=== PATIENT | male | born 1945 | race Caucasian/White ===

== ENCOUNTER 2017-01-23 17:54 | Inpatient (IN) | payer BC, OTHER ==
[~2017-01-23] VITALS: Ht 182.9 cm; Wt 137.4 kg
--- NOTE | ~2017-01-23 | HC ---
[facility] [place] [address] CONSULTATION Name: CASEY WAYNE Chacorta Room #: 421-P ADM IN M.R.#: [id number] Admission: 01/23/17 Attend Phys: Dorita Alex Discharge: Date of : 49 Report #: [id number] THIS REPORT FOR: //name// CC: Martin Delaney Beto REASON FOR CONSULTATION: Evaluate pneumonia community-acquired. HISTORY OF PRESENT ILLNESS: The patient is a 71-year-old with underlying history of hypertension, obstructive sleep apnea, who presents with a 3-day history of low-grade fever, cough, sputum production, shortness of breath. Seen in the outpatient clinic and admitted for further evaluation. Now on 4 liters of oxygen per nasal cannula. He was given ceftriaxone. His fever has abated. He has coughed up yellow to bloody type sputum. No pleuritic chest pain. Dyspnea on exertion. Dry heaves without abdominal pain or diarrhea. No gross emesis. No dysuria or frequency. No rash. No arthritis symptoms more than his normal degenerative arthritis. Traveled to [place] about a month ago. Has been exposed to his and grandson both of which have been without respiratory issues. He is a remote smoker. IMMUNIZATIONS: Up to date for influenza and pneumonia. He notes previous pneumonia several years ago. He does have chronic sinus disease. ALLERGIES: None. MEDICATIONS: As noted on his MAR, including ceftriaxone. PAST MEDICAL HISTORY: Hypertension, hyperlipidemia, bilateral carpal tunnel syndrome, gastroesophageal reflux, obesity, diabetes, degenerative arthritis, spinal stenosis, chronic sinusitis, gouty arthritis, obstructive sleep apnea, appendectomy, bilateral total knee arthroplasties, rheumatic fever, elbow fracture repair, left rotator cuff repair, right trigger finger release. FAMILY HISTORY: Noncontributory. SOCIAL HISTORY: As noted above with no additions. REVIEW OF SYSTEMS: As noted above. PHYSICAL EXAMINATION: VITAL SIGNS: Afebrile, hemodynamically stable. GENERAL: He was alert and cooperative, on 4 liters of oxygen per nasal cannula. He was obese. SKIN: Unremarkable. LYMPH: Unremarkable. HEENT: Unremarkable. [address] [address] CONSULTATION Name: CASEY WAYNE Room #: 421-P [facility] IN M.R.#: [id number] Admission: 01/23/17 Attend Phys: Dorita Alex Discharge: Date of : 49 Report #: [id number] NECK: Supple, no adenopathy. LUNGS: Few crackles heard in the right mid posterior chest. No consolidation. HEART: Regular, without murmur. ABDOMEN: Soft, nontender, no hepatosplenomegaly or mass. EXTREMITIES: Unremarkable. LABORATORY STUDIES: Chest x-ray, right upper lobe and right lower lobe infiltrate. ABG showed a pO2 on room air of 72, pCO2 of 31, pH 7.45. BNP 1283, hemoglobin 10.3, white count , 60% segs, 5% bands, platelet count 130,000. Sodium 141, potassium 3.3, bicarbonate 21, creatinine 1.6. IMPRESSION: A 71-year-old with underlying obstructive sleep apnea, diabetes, obesity with community-acquired pneumonia. He does have oxygen requirements now up to 4 liters. Recommend further evaluation including sputum culture, urine antigens, continue broad antibiotic coverage with followup chest x-ray. PLAN: We will treat sinuses with decongestion, CT scan, screening of his sinuses, check immunoglobulins and HIV. <ELECTRONICALLY SIGNED> By: Tyrese Wagoner MD 01/25/17 0955 1049 1300 Tyrese Wagoner MD /nt
--- NOTE | ~2017-01-23 | H ---
[facility] [place] [address] HISTORY AND PHYSICAL Name: CASEY WAYNE Room #: 421-P ADM IN M.R.#: [id number] Admission: 01/23/17 Attend Phys: Dorita Alex Discharge: Date of : 49 Report #: [id number] THIS REPORT FOR: //name// CC: Martin Delaney Beto DATE OF SERVICE: 01/23/2017 CHIEF COMPLAINT: Shortness of breath and cough. HISTORY OF PRESENT ILLNESS: The patient is a 71-year-old gentleman who was admitted from the office with a several day respiratory illness history: He is complaining of temperature to 101 two days ago, but has developed a cough, congestion and wheezing. He has had some brown type sputum and symptoms of shortness of breath. He had some diffuse bodyaches and headache as well. Overnight, he has received respiratory treatments and a dose of antibiotics and he is feeling somewhat better today; however, he continues to bring up some brown colored sputum. PAST MEDICAL HISTORY: Obstructive sleep apnea on CPAP, hypertension, gout. PAST SURGICAL HISTORY: Noncontributory. FAMILY HISTORY: Noncontributory. SOCIAL HISTORY: He lives at home. No chronic alcohol or tobacco use. ALLERGIES: None. MEDICATIONS: Lipitor 40 mg, metoprolol 50 mg b.i.d., amlodipine 10 mg, lisinopril 20 mg, aspirin 81 mg, Lasix 40 mg, probenecid, colchicine b.i.d. REVIEW OF SYSTEMS: Denies headache, chest pain, nausea, vomiting, diarrhea, constipation, dysuria, syncope, fall. PHYSICAL EXAMINATION: VITAL SIGNS: Temperature 36.8, pulse 64, respirations 18, blood pressure 167/74, O2 sat 95% on 2 liters nasal cannula. GENERAL: He is awake and alert, eating breakfast. HEAD AND NECK: Unremarkable. LUNGS: Have diffuse expiratory rhonchi and wheezes bilateral. HEART: Regular, no murmur. ABDOMEN: Obese, soft, normoactive bowel sounds. EXTREMITIES: No cyanosis, clubbing, maybe trace ankle edema. NEUROLOGIC: Cranial nerves intact. Motor strength 5/5 throughout. Alert and oriented. [facility] [address] [place] [address] HISTORY AND PHYSICAL Name: CASEY WAYNE Room #: 421-P [facility] IN [facility].#: [id number] Admission: 01/23/17 Attend Phys: Dorita Alex Discharge: Date of : 49 Report #: [id number] Chest x-ray suggests a right-sided infiltrate. LABORATORY DATA: Initial white blood count was 4.7, creatinine is 1.6. ASSESSMENT: 1. Community-acquired pneumonia. 2. Obstructive sleep apnea. 3. Hypertension. PLAN: Antibiotics to continue, I asked for sputum culture and influenza culture, I have asked ID and Pulmonary service to follow him as well. Home medications to continue. He has no known prior history of congestive heart failure, but x-ray really does not suggest pulmonary edema, and given a fever and sputum production this looks more infectious in nature. <ELECTRONICALLY SIGNED> By: Sebastián Ron MD 01/25/17 0835 0832 1051 Sebastián Ron MD /nt
--- NOTE | ~2017-01-23 | HC ---
[facility] [place] [address] CONSULTATION Name: CASEY WAYNE Room #: 421-P ADM IN M.R.#: [id number] Admission: 01/23/17 Attend Phys: Dorita Alex Discharge: Date of : 49 Report #: [id number] THIS REPORT FOR: //name// CC: Martin Herrmann MD PRIMARY CARE PHYSICIAN: Rhett Herrmann MD REFERRAL PHYSICIAN: Dr. Ron. REASON FOR REFERRAL: Pneumonia, MEIR. HISTORY OF PRESENT ILLNESS: The patient is a 71-year-old white male who was admitted with progressive febrile illness and dyspnea. He was admitted for presumed pneumonia. A pulmonary consultation was requested. The patient was in his usual state of health until around Saturday when he started to develop congestion, dyspnea and bronchospasm. The following day, he developed fever of 101 degrees Fahrenheit. Symptom progressed where he presented to the office. The patient was directly admitted. In addition to his above complaints, he also complained diffuse myalgias along with headaches. Otherwise, denies any productive cough or chest pain, hemoptysis. Denies any recent nausea, vomiting, diarrhea. The patient denies anyone else ill at home. He has sleep apnea for a number of years. He has been compliant with the use of CPAP. Sleep apnea is primarily managed by Dr. Herrmann. PAST MEDICAL HISTORY: As mentioned above, MEIR, hypertension, gout. PAST SURGICAL HISTORY: Unremarkable. ALLERGIES: None. HOME MEDICATIONS: Include Lipitor, metoprolol, amlodipine, lisinopril, Lasix, colchicine. FAMILY HISTORY: Mother with diabetes along with heart disease. Father, he believes had congestive heart failure. SOCIAL HISTORY: , has children. Denies any tobacco or alcohol use. 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 PAST SURGICAL HISTORY: Multiple orthopedic surgeries involving both knee [facility] [address] [place] [address] CONSULTATION Name: CASEY WAYNE Room #: 421-P [facility] IN [facility].#: [id number] Admission: 01/23/17 Attend Phys: Dorita Alex Discharge: Date of : 49 Report #: [id number] surgery, left shoulder surgery, multiple hand surgeries. REVIEW OF SYSTEMS: As mentioned above, otherwise 10-point system review negative. PHYSICAL EXAMINATION: GENERAL: He is awake, alert, in mild respiratory distress. VITAL SIGNS: Temperature maximum is 99.4 degrees Fahrenheit, pulse is 64, respiratory rate is 20, blood pressure 167/74 mmHg, saturation 95%. HEENT: Normocephalic, atraumatic. NECK: Supple, without any lymphadenopathy or thyromegaly. CHEST: Breath sounds are fair, moderate expiratory wheezes, coarse breath sounds are heard bilaterally. CARDIOVASCULAR: Normal S1, S2. There are no murmurs or gallop. There is no JVD. There is no carotid bruit. Pulses are 2+/4+ bilaterally. ABDOMEN: Soft, nontender, no organomegaly or masses felt. GENITOURINARY: Deferred. RECTAL: Deferred. EXTREMITIES: There is no cyanosis, clubbing. Trace bilateral pretibial edema. LABORATORY DATA: Portable chest x-ray is reviewed showing mild right upper lobe and right lower lobe infiltrates. NT-Pro brain natriuretic peptide is 1283. Electrolytes are normal except for potassium 3.3, creatinine is 1.6, which appears to be chronic with a baseline creatinine of 1.6 to 1.5. Hemoglobin 10.3, WBC is 4700. ABG revealed pH 7.45, pCO2 31, pO2 75. IMPRESSION: 1. Progressive dyspnea in this 71-year-old white male with recent febrile illness, infiltrates and chest x-ray along with bronchospasm. Clinical presentation suggests possible viral syndrome with pneumonia. Community-acquired pneumonia cannot be ruled out. Other types of pneumonia should also be considered including possible gram-negative, etc. 2. Acute hypoxic respiratory failure requiring 4 liters of O2, now requiring 2-4 liters of O2. 3. Obstructive sleep apnea appears to be compliant with the use of CPAP. 4. Exogenous obesity. 5. Chronic kidney disease, baseline creatinine appears to be 1.5 to 1.6. 6. Hypokalemia. RECOMMENDATION: Agree with current broad-spectrum antibiotics to cover for community-acquired pneumonia. I would also obtain influenza screen if not already. Bronchospasm is likely related to underlying airway inflammation related to infectious process. The patient does not have a history of chronic obstructive lung disease or asthma. [address] [address] CONSULTATION Name: CASEY WAYNE Room #: 421-P [facility] IN .R[place]#: [id number] Admission: 01/23/17 Attend Phys: Dorita Alex Discharge: Date of : 49 Report #: [id number] Continue CPAP during sleep during the hospitalization. We will address DVT and GI prophylaxis. Thank you for this consultation. <ELECTRONICALLY SIGNED> By: Mike Miller MD 01/25/17 1135 1216 1550 Mike Miller MD /nt
--- NOTE | ~2017-01-23 | D ---
[facility] [place] [address] DISCHARGE SUMMARY Name: CASEY WAYNE Room #: 421-P ADM IN M.R.#: [id number] Admission: 01/23/17 Attend Phys: Dorita Alex Discharge: Date of : 49 Report #: [id number] THIS REPORT FOR: //name// CC: Martin Clarkva ATTENDING PHYSICIAN: Martin Wagoner MD DATE OF DISCHARGE: 01/27/2017. CHIEF COMPLAINT: Cough, congestion and fever. HISTORY OF PRESENT ILLNESS: The patient is an elderly gentleman who presented to the office complaining of having a cough, congestion and fever. The patient was admitted to the hospital and noted to have a right-sided pneumonia. He was started on IV antibiotics to which he responded well. He was also noted to be hypoxic and was continued on nebulizer treatments and supplemental oxygen. The patient had a good response to his antibiotics and had improvement in the pneumonia. He is being discharged to home on oral antibiotics. The patient is active and was advised to increase his activity. FINAL DIAGNOSES: 1. Community-acquired pneumonia. 2. Obstructive sleep apnea. 3. Chronic obstructive pulmonary disease. 4. Hypertension. 5. Diabetes mellitus. DISCHARGE MEDICATIONS: Were reconciled. By: [id number] Rhett Pérez MD /nt
--- NOTE | ~2017-01-23 | EKG ---
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 BETTS : 1945 Requested By: Martin Wagoner Order Number: [id number] MD: Matias Sexton Measurements Intervals [place] Rate: 68 P: 43 AR: 188 QRS: -2 QRSD: 113 T: 35 QT: 449 QTc: 478 Interpretive Statements Sinus rhythm Atrial premature complexes Borderline T wave abnormalities Borderline prolonged QT interval Compared to ECG 05/28/2015 08:38:35 Atrial premature complex(es) now present T-wave abnormality still present Electronically Signed On 01-24-2017 7:56:47 CDT by Matias Sexton [email or web address] <ELECTRONICALLY SIGNED> By: Matias Sexton MD, [facility] 01/24/17 0756 23 23 Matias Sexton MD, [facility] /EPI
[~2017-01-23 17:54] MED LIST: AMLODIPINE BESY10 MG; ASPIR 8181 MG PO; CRESTOR20 MG; GLUCOPHAGE500 MG; LASIX 40 MG TAB40 M2 PO; LIPITOR40 MG PO; LISINOPRIL20 MG PO; LOPRESSOR 50 MG50 M1; LOPRESSOR50 PO; MINOXIDIL10 MG PO; OMEPRAZOLE20 MG; POTASSIUM20 PO; PROBENECID-COL1 EACH PO; TIZANIDINE HCL4 M1; TRAMADOL 50 MG50 MG
[2017-01-23 18:30] VITALS: BP 206/80
[2017-01-23 20:00] VITALS: BP 213/94
[2017-01-24] VITALS: BP 176/75
[2017-01-24 00:35] VITALS: BP 178/72
[2017-01-24 03:12] LABS: HEMATOCRIT 28.9 % (42.0-52.0); HEMOGLOBIN 10.3 gm/dL (14.0-18.0); MCH 31.6 pg (26.0-34.0); MCHC 35.6 g/dL (28.0-37.0); MCV 88.7 fL (80.0-100.0); PLATELET COUNT 130 thou/uL (150-400); RBC 3.26 mil/uL (4.50-6.00); RDW 14.8 % (10.5-14.5); WBC 4.7 thou/uL (4.0-11.0)
[2017-01-24 03:13] LABS: MANUAL DIFF YES
[2017-01-24 03:41] LABS: ABSOLUTE NEUTROPHILS 3.1 thou/uL (1.4-8.2); ATYPICAL LYMPHS 1 %; TOTAL CELL COUNT 100
[2017-01-24 03:53] LABS: ABG SAMPLE TYPE ARTERIAL; BE(vivo) -2.1 mmol/L (-2 to +3); HCO3 21.2 mmol/L (22.0-26.0); LACTATE 1.41 mmol/L (0.5-2.0); O2(CT) 14.3 mL/dL (15.0-23.0); O2Hb 93.8 % (92.0-98.0); PCO2 31.1 mmHg (35.0-45.0); PO2 75.8 mmHg (80.0-100.0); STICK SITE L.RADIAL; pH 7.451 (7.360-7.450); sO2 95.9 % (92.0-98.0); tCO2 22.1 mmol/L (24.0-30.0)
[2017-01-24 03:54] LABS: ABG COMMENT NASAL CPAP W/4LPM O2
[2017-01-24 04:15] VITALS: BP 162/66
[2017-01-24 04:30] LABS: CALCIUM 8.5 mg/dL (8.5-10.1); CREATININE 1.6 mg/dL (0.7-1.3); POTASSIUM 3.3 mmol/L (3.5-5.1)
[2017-01-24 07:29] VITALS: BP 167/74
[2017-01-24 15:58] VITALS: BP 163/74
[2017-01-24 20:00] VITALS: BP 185/81
[2017-01-24 22:08] LABS: HIV ANTIBODY Non Reactive (Non Reactive)
[2017-01-25 04:41] LABS: ABSOLUTE NEUTROPHILS 1.9 thou/uL (1.4-8.2); BASOPHILS 0.7 % (0.0-2.0); HEMATOCRIT 33.4 % (42.0-52.0); HEMOGLOBIN 11.4 gm/dL (14.0-18.0); LYMPHOCYTES 40.4 % (24.0-44.0); MCHC 34.1 g/dL (28.0-37.0); MONOCYTES 11.3 % (1.0-8.0); PLATELET COUNT 150 thou/uL (150-400); POLYS 43.6 % (36.0-66.0); RBC 3.67 mil/uL (4.50-6.00); RDW 14.9 % (10.5-14.5); WBC 4.3 thou/uL (4.0-11.0)
[2017-01-25 04:43] LABS: MANUAL DIFF NO
[2017-01-25 04:54] LABS: CALCIUM 8.5 mg/dL (8.5-10.1); CREATININE 1.6 mg/dL (0.7-1.3); POTASSIUM 3.7 mmol/L (3.5-5.1)
[2017-01-25 04:57] VITALS: BP 171/71
[2017-01-25 08:40] VITALS: BP 195/82
[2017-01-25 10:07] LABS: IgA 258 mg/dL (61-437); IgG 1070 mg/dL (700-1600); IgM 38 mg/dL (20-172)
[2017-01-25 15:25] VITALS: BP 167/78
[2017-01-25 20:00] VITALS: BP 179/89
[2017-01-26 04:00] VITALS: BP 146/80
[2017-01-26 05:33] LABS: CALCIUM 8.1 mg/dL (8.5-10.1); CREATININE 1.4 mg/dL (0.7-1.3); POTASSIUM 3.7 mmol/L (3.5-5.1)
[2017-01-26 06:56] VITALS: BP 159/87
[2017-01-26 08:00] VITALS: BP 159/87
[2017-01-26 20:00] VITALS: BP 156/65
[2017-01-27 05:30] VITALS: BP 133/63
[2017-01-27] MEDS ORDERED: CEFDINIR300 MG PO (09:08)
[2017-01-27] MEDS ORDERED: AZITHROMYCIN 2250 MG PO (09:08)
[2017-01-27] MEDS ORDERED: DUONEB 2.5-0.5 M3 ML INH (09:08)
[2017-01-27 11:27] VITALS: BP 147/72
[2017-01-27 11:38] VITALS: BP 147/72
[2017-01-27 20:44] VITALS: BP 147/72
== END 2017-01-27 13:27 | disposition home or self-care (01) | DRG 193 ==
LOC: 4E 17:54
PROVIDERS: Internal Medicine; Internal Medicine Geriatric Medicine; Internal Medicine Pulmonary Disease
PROC: 5A09357 Assistance with Respiratory Ventilation, Less than 24 Consecutive Hours, Continuous Positive Airway Pressure (ICD-10-PCS; principal; 2017-01-24)
DX: J18.9 Pneumonia, unspecified organism (principal); J96.01 Acute respiratory failure with hypoxia; Z68.41 Body mass index [BMI] 40.0-44.9, adult; G47.33 Obstructive sleep apnea (adult) (pediatric); J32.9 Chronic sinusitis, unspecified; I12.9 Hypertensive chronic kidney disease with stage 1 through stage 4 chronic kidney disease, or unspecified chronic kidney disease; E11.22 Type 2 diabetes mellitus with diabetic chronic kidney disease; N18.9 Chronic kidney disease, unspecified; M10.9 Gout, unspecified; J44.9 Chronic obstructive pulmonary disease, unspecified; E66.09 Other obesity due to excess calories; E87.6 Hypokalemia; E78.5 Hyperlipidemia, unspecified; K21.9 Gastro-esophageal reflux disease without esophagitis; G56.03 Carpal tunnel syndrome, bilateral upper limbs; M19.90 Unspecified osteoarthritis, unspecified site; M48.00 Spinal stenosis, site unspecified; Z96.653 Presence of artificial knee joint, bilateral; Z79.4 Long term (current) use of insulin; Z79.899 Other long term (current) drug therapy; Z79.82 Long term (current) use of aspirin; Z83.3 Family history of diabetes mellitus; Z82.49 Family history of ischemic heart disease and other diseases of the circulatory system; Z87.891 Personal history of nicotine dependence; Z87.01 Personal history of pneumonia (recurrent); Z90.49 Acquired absence of other specified parts of digestive tract; Z87.81 Personal history of (healed) traumatic fracture
CPT/HCPCS: 10783

== ENCOUNTER → 2017-08-21 | Outpatient (CLI) | payer BC, OTHER ==
[~2017-08-21] VITALS: Ht 182.9 cm; Wt 124.7 kg
[2017-08-21] VITALS (13 sets, daily range): BP systolic 119–144; BP diastolic 60–79
[~2017-08-21] MED LIST changes: +ATORVASTATIN CA40 MG PO; +AZITHROMYCIN 2250 MG PO; +CEFDINIR300 MG PO; +DUONEB 2.5-0.5 M3 ML INH; +IRON325 PO; +METOLAZONE 2.52.5 M1 PO; +REGLAN 10 MG TA10 MG PO
== END | disposition home or self-care (01) ==
LOC: CAT 08:12
DX: M47.816 Spondylosis without myelopathy or radiculopathy, lumbar region (principal); E66.9 Obesity, unspecified; K21.9 Gastro-esophageal reflux disease without esophagitis; E11.9 Type 2 diabetes mellitus without complications; I11.0 Hypertensive heart disease with heart failure; I50.9 Heart failure, unspecified; G47.33 Obstructive sleep apnea (adult) (pediatric); E78.5 Hyperlipidemia, unspecified